=== PATIENT | female | born 1960 | race Caucasian/White ===

== ENCOUNTER 2021-08-01 04:26 | Day surgery (SDC) | payer BC ==
[2021-07-31 14:35] VITALS: BMI 33.8
[~2021-08-01 04:26] MED LIST: ceFAZolin SODIUM 1 GM VIAL IVPB ONE
[2021-08-01] MEDS ORDERED: PROPOFOL 20 ML ONE (12:50)
[2021-08-01] MEDS ORDERED: ceFAZolin SODIUM 1 GM VIAL ONE (12:50)
[2021-08-01] MEDS ORDERED: MIDAZOLAM HCL 2 MG/2 ML SINGLE DOSE VIAL ONE ×2 (12:50→13:06)
[2021-08-01] MEDS ORDERED: SODIUM CHLORIDE 0.9% P/F 10 ML VIAL IJ ONE (12:51)
[2021-08-01] MEDS ORDERED: ceFAZolin SODIUM 1 GM VIAL IVPB ONE (12:56)
[2021-08-01] MEDS ORDERED: DEXAMETHASONE SOD PHOSPHATE 4 MG/1 ML VIAL ONE (13:38)
[2021-08-01] MEDS ORDERED: ACETAMINOPHEN 325 MG TABLET (FP) PO PRN (14:03)
[2021-08-01] MEDS ORDERED: ONDANSETRON 4 MG/2 ML VIAL IVPUSH PRN (14:03)
[2021-08-01] MEDS ORDERED: LACTATED RINGERS SOLUTION 1,000 ML IV SCH (14:15)
[2021-08-01 18:35] VITALS: BP 118/60; PULSE 78; TEMP 98.2
== END 2021-08-01 18:20 | disposition home or self-care (01) ==
LOC: JASU-SURG 04:26
PROVIDERS: ATTEND Urology
PROC: 0T5B8ZZ Destruction of Bladder, Via Natural or Artificial Opening Endoscopic (ICD-10-PCS; principal; 2021-08-01 13:00)
DX: C67.9 Malignant neoplasm of bladder, unspecified (principal)
CPT/HCPCS: 87086; 88108; 88305-TC; 94760